=== PATIENT | female | born 1990 ===

== ENCOUNTER 2017-03-23 17:46 | Emergency (ER) | payer OTHER ==
[~2017-03-23] VITALS: Ht 167.6 cm; Wt 86.6 kg
[2017-03-23 18:18] VITALS: TEMP 36.8; Ht 167.6 cm; Wt 86.6 kg
--- NOTE | 2017-03-23 19:00 | EMERGENCY ROOM VISIT NOTE ---
History Report prepared by Elizabeth: Tony Ohara Under the Supervision of: Dr. Pablo Corona M.D. First contact with patient: 18:35 Chief Complaint: SWELLING TO EXTREMITY Stated Complaint: SWELLING OFEET AND LEGS FOR MORE THAN 36 HRS History of Present Illness The patient is a 26 year old female who presents to the Emergency Room with complaints of constant bilateral leg swelling beginning two days prior to arrival. She currently rates her discomfort as a 6/10 in severity. The patient associates swelling from both feet to the knees, mild recent weight gain, decreased urination, and difficulty walking with today's symptoms. She states she flew to [place] on for a wedding on Thursday, when she noticed the swelling after the wedding. The patient notes she wrapped her legs, elevated her feet, and drank a lot of water yesterday without relief. She states she flew back from [place] today, and her symptoms were unchanged. The patient denies a fever, shortness of breath, abdominal pain, chance of , and increased salt intake. She notes she was on Augmentin last week for congestion and cold symptoms. The patient denies experiencing these symptoms in the past. 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 A total of 10 systems reviewed and were otherwise negative. Past Medical & Surgical Medical Problems: (1) Kidney infection Family History Patient reports no known family medical history. 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 HEENT: No acute trauma, normocephalic atraumatic, mucous membranes moist, no nasal congestion, no scleral icterus. NECK: No stridor, no adenopathy, no meningismus, trachea is midline. LUNGS: Clear to auscultation bilaterally, no wheeze, no rhonchi, breath sounds equal. HEART: Without murmurs gallops or rubs, regular rate and rhythm. ABDOMEN: Soft, nontender, bowel sounds positive, no hernias, no peritonitis. EXTREMITIES: Edema to both lower extremities. Good distal blood flow to all toes. No cellulitis. No obvious trauma noted. NEUROLOGIC: Oriented x 3, no acute motor or sensory deficits, no focal weakness. SKIN: No rash, no jaundice, no diaphoresis. Medical Decision & Procedures ER Provider Diagnostic Interpretation: US results as stated below per my review and radiologist interpretation: ULTRASOUND BILATERAL LOWER EXTREMITY VENOUS CLINICAL HISTORY: Lower extremity swelling. COMPARISON STUDY: No priors. TECHNIQUE: Real-time, grayscale, and color Doppler sonography of the deep veins of the right and left lower extremity was performed from the inguinal crease to the calf. Compression and augmentation were utilized. FINDINGS: There is no sonographic evidence of deep venous thrombosis identified in the right or left lower extremity. The common femoral, superficial femoral, and popliteal veins are patent and normally compressible bilaterally. The greater saphenous vein and the profunda femoris vein at the junction with the common femoral vein are clear in both legs. The visualized calf veins are patent bilaterally. IMPRESSION: There is no sonographic evidence of deep venous thrombosis identified in the right or left lower extremity. Electronically signed by: Pablo Dixon M.D. 03/23/2017 9:12 PM Laboratory Results 03/23/17 19:20 03/23/17 19:20 Test 03/23/17 19:09 03/23/17 19:20 Urine Color YELLOW Urine Appearance CLEAR (CLEAR) Urine pH 6.5 (4.5-7.5) Urine Specific [place] 1.020 (1.000-1.030) Urine Protein NEG (NEG) Urine Glucose (UA) NEG (NEG) Urine Ketones NEG (NEG) Urine Occult Blood TRACE (NEG) Urine Nitrite NEG (NEG) Urine Bilirubin NEG (NEG) Urine Urobilinogen NEG (NEG) Urine Leukocyte Esterase MODERATE (NEG) Urine WBC (Auto) 10-30 /hpf (0-5) Urine RBC (Auto) 0-4 /hpf (0-4) Urine Hyaline Casts (Auto) 1-5 /lpf (0-5) Urine Epithelial Cells (Auto) >30 /lpf (0-5) Urine Bacteria (Auto) 1+ (NEG) Urine Test NEG (NEG) Red Blood Count 4.62 M/uL (4.2-5.4) Mean Corpuscular Volume 80.5 fL (80-100) Mean Corpuscular Hemoglobin 25.5 pg (25-34) Mean Corpuscular Hemoglobin Concent 31.7 g/dl (32-36) RDW Standard Deviation 46.0 fL (36.4-46.3) RDW Coefficient of Variation 15.6 % (11.5-14.5) Mean Platelet Volume 11.0 fL (7.4-10.4) Prothrombin Time 10.0 SECONDS (9.0-12.0) Prothromb Time International Ratio 0.9 (0.9-1.1) Activated Partial Thromboplast Time 28.7 SECONDS (21.0-31.0) Partial Thromboplastin Ratio 1.1 Anion Gap 4.0 mmol/L (3-11) Est Creatinine Clear Calc Drug Dose 115.2 ml/min Estimated GFR () 114.5 Estimated GFR (Non- 98.8 BUN/Creatinine Ratio 9.9 (10-20) Calcium Level 9.0 mg/dl (8.5-10.1) Total Bilirubin 0.1 mg/dl (0.2-1) Aspartate Amino Transf (AST/SGOT) 28 U/L (15-37) Alanine Aminotransferase (ALT/SGPT) 44 U/L (12-78) Alkaline Phosphatase 125 U/L (45-117) Total Protein 8.2 gm/dl (6.4-8.2) Albumin 3.7 gm/dl (3.4-5.0) Globulin 4.5 gm/dl (2.5-4.0) Albumin/Globulin Ratio 0.8 (0.9-2) Thyroid Stimulating Hormone (TSH) 2.370 uIu/ml (0.300-4.500) Laboratory results reviewed by me. Medications Administered Medications (Trade) Dose Ordered Sig/Isamar Route Start Time Stop Time Status Last Admin Dose Admin Ibuprofen (Motrin Tab) 600 mg STK-MED ONCE .ROUTE 03/23/17 20:06 03/23/17 20:07 DC 03/23/17 20:11 600 MG ED Course 183: The patient was evaluated in room A4B. A complete history and physical exam was performed. 2123: Reevaluated the patient. Discussed results and discharge instructions: She verbalized understanding and agreement. The patient is ready for discharge. Medical Decision The differential diagnoses include but are not limited to: DVT, fluid overload, renal failure, electrolyte imbalance, thyroid disorder, UTI, . There is no leukocytosis or concerning anemia. No significant electrolyte abnormality or kidney failure. The patient appears to be in a euthyroid state. Urinalysis shows contamination, no obvious infection. testing is negative. Bilateral lower extremity ultrasound is negative for DVT. On exam, there was no cellulitis. The patient appears to have edema from some fluid overload. She is being discharged to stay off her feet, elevation was suggested. She will decrease her salt intake. I will prescribe a few days of Lasix to help with the swelling. If worsening, she can return. [facility] will [facility] with [facility]. Impression Primary Impression: Lower extremity edema Scribe Attestation The scribe's documentation has been prepared under my direction and personally reviewed by me in its entirety. I confirm that the note above accurately reflects all work, treatment, procedures, and medical decision making performed by me. Departure Information Dispostion Home / Self-Care Prescriptions Furosemide (LASIX) 20 Mg Tab 20 MG PO QD@08 for 3 Days, #3 TAB Prov: Pablo Corona M.D. 03/23/17 Referrals No Doctor, Assigned (PCP) Forms HOME CARE DOCUMENTATION FORM, IMPORTANT VISIT INFORMATION Patient Instructions My [facility] Additional Instructions try to stay off of your feet and keep the legs elevated lasix daily in the morning for 3 days follow with S in 2 days for a recheck motrin or tylenol for pain avoid salt return if worsening no clot by testing today
[2017-03-23 19:34] LABS: HEMATOCRIT 37.2 % (37-47); MEAN CELL VOLUME 80.5 fL (80-100); MEAN CORPUSCULAR HEMOGLOBIN 25.5 pg (25-34); MEAN CORPUSCULAR HGB CONC 31.7 g/dl (32-36); PLATELET COUNT 299 K/uL (130-400); RED BLOOD COUNT 4.62 M/uL (4.2-5.4); WHITE BLOOD COUNT 8.94 K/uL (4.8-10.8)
[2017-03-23 19:44] LABS: URINE APPEARANCE CLEAR (CLEAR); URINE BILIRUBIN NEG (NEG); URINE COLOR YELLOW; URINE EPITHELIAL CELL AUTO >30 /lpf (0-5); URINE NITRITE NEG (NEG); URINE PH 6.5 (4.5-7.5); UROBILINOGEN NEG (NEG)
[2017-03-23 19:45] LABS: INR 0.9 (0.9-1.1); PARTIAL THROMBOPLASTIN RATIO 1.1
[2017-03-23 19:52] LABS: MANUAL MICROSCOPIC REQUIRED? NO; REVIEW REQ? NO
[2017-03-23 19:54] LABS: BUN/CREATININE RATIO 9.9 (10-20); CREATININE 0.82 mg/dl (0.60-1.20); POTASSIUM 3.7 mmol/L (3.5-5.1)
[2017-03-23 20:03] LABS: ALB/GLOB RATIO 0.8 (0.9-2); THYROID STIMULATING HORMONE 2.37 uIu/ml (0.300-4.500)
[2017-03-23] MEDS ORDERED: IBUPROFEN 600 MG TAB ONE (20:06)
[2017-03-23] MEDS ORDERED: ACET-1256 PO (20:24)
[2017-03-23] MEDS ORDERED: PRLSR20 PO (20:24)
[2017-03-23 21:11] VITALS: BP 110/78; PULSE 59; O2SAT 100
--- NOTE | 2017-03-23 21:13 | DIAGNOSTIC IMAGING REPORT ---
ULTRASOUND BILATERAL LOWER EXTREMITY VENOUS CLINICAL HISTORY: Lower extremity swelling. COMPARISON STUDY: No priors. TECHNIQUE: Real-time, grayscale, and color Doppler sonography of the deep veins of the right and left lower extremity was performed from the inguinal crease to the calf. Compression and augmentation were utilized. FINDINGS: There is no sonographic evidence of deep venous thrombosis identified in the right or left lower extremity. The common femoral, superficial femoral, and popliteal veins are patent and normally compressible bilaterally. The greater saphenous vein and the profunda femoris vein at the junction with the common femoral vein are clear in both legs. The visualized calf veins are patent bilaterally. IMPRESSION: There is no sonographic evidence of deep venous thrombosis identified in the right or left lower extremity. Electronically signed by: Pablo Dixon M.D. 03/23/2017 9:12 PM Dictated Date/Time: 03/23/2017 9:12 PM
[2017-03-23] MEDS ORDERED: FURO20TA PO (21:28)
== END 2017-03-23 21:56 | disposition home or self-care (01) ==
LOC: C.EDB 17:48 → C.EDA 21:56
DX: R60.0 Localized edema (principal); F17.210 Nicotine dependence, cigarettes, uncomplicated; Z79.899 Other long term (current) drug therapy